=== PATIENT | male | born 1985 | race American Indian/Alaskan Native ===

== ENCOUNTER 2017-05-01 00:13 | Emergency (ER) | payer MEDICAID ==
[2017-05-01 00:50] VITALS: BP 129/77; PULSE 84; RESP 16; TEMP 98.3; O2SAT 96
[2017-05-01] MEDS ORDERED: TDAP Vaccine 0.5 mL Syr IM ONE (00:59)
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
[2017-05-01] MEDS ORDERED: Lidocaine 1% Inj (20ml) ONE (01:02)
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
== END 2017-05-01 02:00 | disposition home or self-care (01) ==
LOC: H.ER 00:13
DX: S61.411A Laceration without foreign body of right hand, initial encounter (principal); W26.8XXA Contact with other sharp object(s), not elsewhere classified, initial encounter; Y92.89 Other specified places as the place of occurrence of the external cause

== ENCOUNTER 2018-05-26 11:25 | Emergency (ER) | payer MEDICAID ==
[2018-05-26 11:31] VITALS: PULSE 83; RESP 22; TEMP 97; O2SAT 96
--- NOTE | 2018-05-26 13:17 | ED PDOC ---
Lower Extremity Pain/Injury Time Seen by Provider: 05/26/18 11:55 Chief Complaint (Nursing): Lower Extremity Problem/Injury Chief Complaint (Provider): Lower Extremity Problem/Injury History Per: Patient History/Exam Limitations: no limitations Onset/Duration Of Symptoms: Hrs (at 1100) Current Symptoms Are (Timing): Still Present Additional Complaint(s): 33 year old male presents to the ED complaining of pain to left Achilles area. At 1100 this morning, patient was walking up the stairs when he felt a snapping pain to the left Achilles. Since then, he has had pain to the area and reports no trauma, fall, fever and other joint pain. PMD: Narciso Strickland Past Medical History Reviewed: Historical Data, Nursing Documentation, Vital Signs Vital Signs: Last Vital Signs Temp 97 F L 05/26/18 11:50 Pulse 83 05/26/18 11:50 Resp 22 05/26/18 11:50 BP 114/78 05/26/18 11:50 Pulse Ox 96 05/26/18 11:50 - Medical History PMH: No Chronic Diseases - Surgical History Surgical History: No Surg Hx - Family History Family History: States: Unknown Family Hx - Home Medications Home Medications: Ambulatory Orders Medication Instructions Recorded Amoxicillin/Clavulanate [Augmentin 1 tab PO BID #14 tab 09/15/15 875 MG-125 MG] Ibuprofen [Motrin] 600 mg PO Q6H PRN #15 tab 09/15/15 Sulfamethoxazole/Trimethopri 1 tab PO BID #14 tab 09/15/15 [Bactrim Ds 800 mg-160 mg] oxyCODONE/Acetaminophen [Percocet 1 ea PO Q6H PRN #8 tab 09/15/15 5/325 mg Tab] Meloxicam [Mobic] 15 mg PO DAILY #20 tab 05/26/18 - Allergies Allergies/Adverse Reactions: Allergies Allergy/AdvReac Type Severity Reaction Status Date / Time No Known Allergies Allergy Verified 05/26/18 11:50 Review of Systems ROS Statement: Except As Marked, All Systems Reviewed And Found Negative Constitutional: Negative for: Fever Musculoskeletal: Positive for: Other (Left Achilles pain) Physical Exam - Reviewed Nursing Documentation Reviewed: Yes Vital Signs Reviewed: Yes - Physical Exam Comments: GENERAL APPEARANCE: Patient is awake, alert, oriented x 3, in no acute distress. SKIN: Warm, dry; (-) cyanosis. LOWER EXTREMITY: (+) palpable depression with tenderness to left Achilles, (-) edema, (+) limited range of motion secondary to pain, (+) Evans test indicating possible achilles tendon rupture. Knee and foot: (-) injury. CARDIOVASCULAR: (+) distal pulse. NEUROLOGIC: (+) distal sensation. - ECG O2 Sat by Pulse Oximetry: 96 (RA) Pulse Ox Interpretation: Normal Medical Decision Making Medical Decision Making: Initial Impression: Left Achilles Pain Initial Plan: --Ultram 50mg PO --US Extremity Discussed with Dr. Herrera and ordered ultrasound to r/o Achilles tendon rupture. US LLE : FINDINGS: Soft tissues: Discontinuity of the of the Achilles tendon 5 cm from the calcaneus suggestive of a partial tear of the Achilles tendon. IMPRESSION: Discontinuity of the of the Achilles tendon 5 cm from the calcaneus suggestive of a partial tear of the Achilles tendon. Dictated and Authenticated by: Wale Lucas MD 05/26/2018 3:14 PM Eastern Time ([place] & [place]) Ultrasound results discussed with the patient in great detail. Diagnosis of partial Achilles tendon tear discussed with the patient. Orthoglass short leg splint positioned in slight dorsiflexion applied, and adjusted by PA. Neurovascular intact post splint application. Patient instructed on crutch walking. Advised to follow up with ortho referral in 1-2 days without fail. Advised to take medication as prescribed. Return to the emergency room at any time for any new or worsening symptoms. Patient states he fully agrees with and understands discharge instructions. States that he agrees with the plan and disposition. Verbalized and repeated discharge instructions and plan. I have given the patient opportunity to ask any additional questions. Scribe Attestation: Documented by Pa Anglin acting as a scribe for Rachna SINGH. Provider Scribe Attestation: All medical record entries made by the Scribe were at my direction and personally dictated by me. I have reviewed the chart and agree that the record accurately reflects my personal performance of the history, physical exam, medical decision making, and the department course for this patient. I have also personally directed, reviewed, and agree with the discharge instructions and disposition. Disposition - Clinical Impression Clinical Impression: Partial Achilles tendon tear - Patient ED Disposition Is Patient to be Admitted: No Counseled Patient/Family Regarding: Studies Performed, Diagnosis, Need For Followup, Rx Given - Disposition Referrals: Puneet Navarrete III, MD [Staff Provider] - Disposition: Routine/Home Disposition Time: 15:30 Condition: STABLE Additional Instructions: Thank you for letting us take care of you today. You were treated for partial Achilles tendon tear. The emergency medical care you received today was directed at your acute symptoms. If you were prescribed any medication, please fill it and take as directed. It may take several days for your symptoms to resolve. Return to the Emergency Department if your symptoms worsen, do not improve, or if you have any other problems. Please contact your doctor in 2 days for re-evaluation and follow up / or call one of the physicians/clinics you have been referred to that are listed on the Patient Visit Information form that is included in your discharge packet. Bring any paperwork you were given at discharge with you along with any medications you are taking to your follow up visit. Our treatment cannot replace ongoing medical care by a primary care provider (PCP) outside of the emergency department. Thank you for allowing the [facility] team to be part of your care today. If you had an US: A Radiologist will review the ED reading if any change in treatment is needed we will contact you. Prescriptions: Meloxicam [Mobic] 15 mg PO DAILY #20 tab Instructions: Achilles Tendon Rupture Forms: [employer] (Luxembourgish), [facility] ED School/Work Excuse - PA / RETAIL ACCOUNT MANAGER / Resident Statement MD/DO has reviewed & agrees with the documentation as recorded.
[2018-05-26 16:20] VITALS: BP 122/70
--- NOTE | 2018-05-28 14:58 | US ---
Date of service: 05/26/2018 PROCEDURE: Ultrasound left Achilles tendon HISTORY: L lower calf pain, r/o L achilles tendon rupture COMPARISON: No prior study available comparison TECHNIQUE: Targeted sonographic evaluation of the left Achilles tendon performed. FINDINGS: Current study reveals what appears to represent disruption -partial tear of the Achilles tendon approximately 5 cm proximal to the calcaneus. Followup MRI recommended. IMPRESSION: Apparent partial tear of the Achilles tendon. Recommend followup MRI. Note that this report was placed in PA review folder for followup.
== END 2018-05-26 16:05 | disposition home or self-care (01) ==
LOC: H.ER 11:25
DX: S86.012A Strain of left Achilles tendon, initial encounter (principal)